=== PATIENT | female | born 1980 | race Caucasian/White ===

== ENCOUNTER 2018-11-19 23:14 | Emergency (ER) | payer MEDICAID, SELFPAY ==
[2018-11-19 23:15] VITALS: BP 136/81; PULSE 96; RESP 16; TEMP 36.8; O2SAT 98; BMI 27.3
--- NOTE | 2018-11-20 00:06 | ED.DCSUM_ITS ---
History of Present Illness Chief Complaint: Abd Pain Detail of Chief Complaint: Abnormal vaginal discharge status post 3 weeks ago Informant: Patient Onset: Today Context: Sudden Onset Timing: Continuous, Waxes and wanes Quality: Pain Location: Predominantly central abdomen Current Severity: Mild Maximum Severity: Moderate Worsened by: Nothing in particular Relieved by: Nothing Associated Symptoms: Vaginal discharge that appears abnormal and has an odor Narrative: Patient is a 38-year-old hearing impaired white female who presents with predominantly central upper and lower abdominal pain associated with abnormal vaginal discharge that has an odor. She is administering Lovenox since she had a stroke several years ago. She denies dysuria, frequency, urgency or hematuria. She denies back pain. She denies rash. There is no history of trauma. Prior similar symptoms: No Recent Illness/Hospitalization: Yes - 3 weeks ago - Past Medical History (1) History of CVA (cerebrovascular accident) Status: Acute (2) Hearing impaired person Status: Acute Past Medical History - Allergies and Home Meds Allergies/Adverse Reactions: Allergies No Known Allergies Allergy (Verified 11/19/18 23:18) Primary Care Physician: Care Physician,No Primary [Primary Care Provider] - Prior records reviewed: No - There are no old records for review Surgical History: - - Repeat 3 weeks ago Lives: With Family Smoking Status: Current every day smoker Alcohol: Rare Drugs: None Review of Systems General: Reports: Malaise. Denies: Chills, Fever, Sweats Eyes: Denies: Visual changes - bilaterally, Blurred Vision - bilaterally, Diplopia ENT: Denies: Bilateral ear pain, Rhinorrhea, Sore throat Cardiovascular: Denies: Chest pain, Palpitations, Heart racing Respiratory: Denies: Dyspnea, Cough, Sputum, Dyspnea on exertion, Orthopnea, Paroxysmal nocturnal dyspnea, -, - Gastrointestinal: Reports: Abdominal pain, Nausea. Denies: Vomiting, Diarrhea, Constipation, Melena, Hematochezia Genitourinary: Denies: Dysuria, Hematuria, Frequency Musculoskeletal: Denies: Myalgias, Arthralgias, Neck pain, Back pain, Swelling, Extremity Pain, -, - Skin: Denies: Rash, Abscess, Abrasions, Wounds, -, - Neurological: Denies: Headache, Weakness, Numbness Endocrine: Denies: Polyuria, Polydipsia Hematologic: Reports: Easy bruising Allergy: Denies: Uticaria, Swelling of the mouth Physical Exam Vital Signs/Narrative: Vital Signs Temp Pulse Resp BP Pulse Ox 11/19/18 23:15 98.2 F 96 16 136/81 H 98 Inital Vital Signs reviewed: Yes General: Well nourished, Well developed, No Acute Distress Head: Normocephalic, Atraumatic Eyes: Perrl, EOMI. Negative for: Pale conjunctiva, Scleral icterus ENT: Moist mucous membranes, No rhinorrhea Neck: Supple, Nontender, No lymphadenopathy, No JVD Cardiovascular: Regular rate, Regular rhythm, No murmurs, Normal S1, Normal S2 Respiratory: No distress, CTA bilaterally, Chest nontender Abdomen: Soft, Nondistended, No masses, Tender. Negative for: Guarding, Rebound tenderness Back: Nontender, Normal Inspection. Negative for: CVA tenderness Extremities: Nontender, No edema Skin: Normal color, No rash. Negative for: Cyanosis, Diaphoresis, Jaundice Neurological: Alert, Oriented x3, Cranial nerves II-XII grossly intact, Normal Strength, Normal Sensation Psychological: Normal affect, Normal Mood Diagnostic/Tx/Re-eval Laboratory Results 11/19/18 23:50 WBC 11.8 H RBC 4.44 Hgb 14.7 Hct 41.8 MCV 94.1 MCH 33.1 H MCHC 35.2 RDW 11.9 RDW Differential 40.4 Plt Count 361 MPV 8.5 Immature Gran % (Auto) 0.300 Neut % (Auto) 72.1 H Lymph % (Auto) 20.3 [place] % (Auto) 5.0 Eos % (Auto) 2.2 Baso % (Auto) 0.1 Absolute Neuts (auto) 8.5 H Absolute Lymphs (auto) 2.39 Total Counted Not Reportable - Medical Decision Making With history of recent and abdominal pain with abnormal vaginal discharge and odor patient will need pelvic exam. She may be bleeding secondary to Lovenox. There may be evidence of endometritis. IV was established. She was medicated with pain medicine. She was made n.p.o. and appropriate blood work was obtained to assess severity of illness and specifically H&H and white count. External genitalia normal. Vaginal mucosa is normal. There is whitish brown drainage noted from office. Patient has significant discomfort with palpation of the uterus. There is no adnexal mass appreciated. There is no adnexal fullness. Patient is not breast-feeding. She received her first dose of doxycycline in the emergency department and a prescription for doxycycline. She was instructed to keep her appointment with screen door maker scheduled for November 22. ED Disposition - Plan for ED Patient: Disposition: Home or Assisted Living Diagnosis: Endometritis following delivery Prescriptions: Hydrocodone Bitart/Apap 5-325 [[place] 5MG-325MG] 1 tab PO Q6H PRN PRN 3 Days #10 tab PRN Reason: Pain Doxycycline 100 mg PO BID #20 cap Referrals: Care Physician,No Primary [Primary Care Provider] - Additional Instructions: Keep scheduled appointment with laborer cheesemaking scheduled for November 22. Take medication as instructed until gone.
[2018-11-20] MEDS: Ketorolac 15 MG/ML Vial IV (00:14)
[2018-11-20 00:16] LABS: Absolute Lymphocyte Count 2.39 X10^3/ul (0.83-4.51); Absolute Neutrophil Count 8.5 X10^3/uL (2.0-7.7); Basophil# 0.01 X10^3/uL; Basophil% 0.1 % (0-1); Eosinophil# 0.26 X10^3/uL; Eosinophils% 2.2 % (0-5); Hematocrit 41.8 % (37-47); Hemoglobin 14.7 g/dl (12.0-15.0); Lymphocyte # 2.39 X10^3/ul (4.0); Lymphocyte % 20.3 % (19-41); Mean Corp Hgb Conc 35.2 g/gl (32-36); Mean Corpuscular Hgb 33.1 pg (27.0-32.0); Mean Corpuscular Volume 94.1 fL (81-99); Mean Platelet Vol. 8.5 fl (6.2-12.0); Monocyte# 0.59 X10^3/uL; Neutrophil # 8.49 X10^3/uL (2.7-7.7); Neutrophil % 72.1 % (47-70); Platelet Count 361 K/mm3 (150-450); RBC Distribution Width CV 11.9 % (11.6-14.6); RBC Distribution Width SD 40.4 fl (35.1-43.9); Red Blood Count 4.44 M/mm3 (4.2-5.4); White Blood Count 11.8 K/mm3 (4.4-11.0)
[2018-11-20 00:26] LABS: POSITIVE COUNT NO; POSITIVE DIFFERENTIAL NO; POSITIVE MORPHOLOGY NO
--- NOTE | 2018-11-20 00:48 | ED.VISSUMM ---
- ER Visit Summary Date of Service: 11/20/18 Chief Complaint: [] History of Present Illness: The patient is a 38 F [] Physical Examination: [] Test Results: [] Emergency Department Course and Treatment: [] Treatment Plan: [] Disposition: [] Impression: [] This note was generated with [employer] dictation software. It may contain incorrect words, spelling, and punctuation that were not noted in review of the chart prior to signing ED Disposition - Plan for ED Patient: Disposition: Home or Assisted Living Diagnosis: Endometritis following delivery Instructions: ED Endometritis Obstetric Prescriptions: Hydrocodone Bitart/Apap 5-325 [[place] 5MG-325MG] 1 tab PO Q6H PRN PRN 3 Days #10 tab PRN Reason: Pain Doxycycline 100 mg PO BID #20 cap Referrals: Care Physician,No Primary [Primary Care Provider] - Additional Instructions: Keep scheduled appointment with distribution collection operator scheduled for , November 22. Take medication as instructed until gone.
[2018-11-20] MEDS: HYDROcodone Bitartrate/Apap 5/325 Tablet PO (01:04)
[2018-11-20] MEDS: Doxycycline 100 MG CAPSULE PO (01:04)
[2018-11-20 01:07] VITALS: BP 131/74; PULSE 85; RESP 16; O2SAT 95
== END 2018-11-20 01:11 | disposition home or self-care (01) ==
PROVIDERS: Emergency Provider Emergency Medicine
DX: O86.12 Endometritis following delivery (principal); Z3A.00 Weeks of gestation of pregnancy not specified; F17.200 Nicotine dependence, unspecified, uncomplicated; Z86.73 Personal history of transient ischemic attack (TIA), and cerebral infarction without residual deficits
CPT/HCPCS: 85025; 96374; 99285; A4216

== ENCOUNTER 2019-05-13 11:27 | Emergency (ER) | payer MEDICAID, SELFPAY ==
[2019-05-13 11:28] VITALS: BP 147/89; PULSE 66; RESP 16; TEMP 36.6; O2SAT 98; BMI 25.4
--- NOTE | 2019-05-13 12:01 | EKG12_ITS ---
Test Reason : CP Blood Pressure : / mmHG Vent. Rate : 059 BPM Atrial Rate : 059 BPM P-R Int : 158 ms QRS Dur : 092 ms QT Int : 450 ms P-R-T Axes : 068 086 061 degrees QTc Int : 445 ms Sinus bradycardia with marked sinus arrhythmia Possible Anterior infarct , age undetermined Abnormal ECG Confirmed by BETSY BURROUGHS, JAQUI ([id number]), assignment editor UNRULY FOWLER ([id number]) on 05/15/2019 1:50:31 PM Referred By: ASHLYN/USHA Confirmed By:JAQUI MEYER MD
--- NOTE | 2019-05-13 12:01 | RAD_ITS ---
STUDY: X-RAY CHEST REASON FOR EXAM: Female, 39 years old. Chest pain. TECHNIQUE: 2 view chest. COMPARISON: None. FINDINGS: No apparent pneumothorax, pneumonia, pleural effusion, or edema. Cardiac silhouette, terrence and mediastinal contours are within normal limits. No acute osseous abnormality. No evidence of free air under the diaphragm. RAD/Chest PA and Lateral IMPRESSION: Negative chest radiograph. Electronically Signed: Gary Millan, at 12:42 EDT Tel , Service support ,
--- NOTE | 2019-05-13 12:02 | ED.DCSUM_ITS ---
History of Present Illness Chief Complaint: Chest Pain Informant: Patient Onset: Today Context: Sudden Onset Timing: Continuous Current Severity: Mild Maximum Severity: Severe Narrative: It is a 39-year-old female with history of anxiety hearing impairment and strokes presenting with chest pain. Patient states she woke up from sleep around 2 AM with chest tightness and shortness of breath. She states it felt like a severe anxiety attack which she does have a history of. Around 6:30 AM she took a Vistaril and is starting to feel slightly improved. She is concerned it could be something wrong with her heart so she came to the emergency room. She notes her symptoms are still present but much more mild. She also has a burning sensation in her epigastric region. Patient denies any vomiting or diarrhea. She denies any diaphoresis. She does smoke on a daily. She denies any alcohol or other drug use. Patient also comments that she has had a bulging sensation in her left lower abdomen since her 6-1/2 months ago. This is Shorty been evaluated by her PLASTIC CABLEMAKING MACHINE OPERATOR but she does not know the cause of it. That is currently not bothering her right now. Past Medical History - Allergies and Home Meds Allergies/Adverse Reactions: Allergies No Known Allergies Allergy (Verified 05/13/19 11:33) Primary Care Physician: Care Physician,No Primary [Primary Care Provider] - Surgical History: - - Repeat 3 weeks ago Smoking Status: Current every day smoker Review of Systems All systems negative except as indicated Cardiovascular: Reports: Chest pain Psych: Reports: Anxiety Physical Exam Vital Signs/Narrative: Vital Signs Temp Pulse Resp BP Pulse Ox 05/13/19 11:28 97.9 F 66 16 147/89 H 98 Inital Vital Signs reviewed: Yes General: Well nourished, Well developed, No Acute Distress Head: Normocephalic, Atraumatic Eyes: Perrl, EOMI ENT: Moist mucous membranes, No rhinorrhea Neck: Supple, Nontender Cardiovascular: Regular rate, Regular rhythm, No murmurs Respiratory: No distress, CTA bilaterally, Chest nontender Abdomen: Soft, Nontender, Nondistended, Normal bowel sounds Back: Nontender, Normal Inspection Extremities: Nontender, No edema Skin: Normal color, No rash Neurological: Alert, Oriented x3, Cranial nerves II-XII grossly intact, Normal Strength, Normal Sensation, - - With slurred speech, patient states this is chronic for her as she is hard of hearing Psychological: Normal affect, Normal Mood Diagnostic/Tx/Re-eval Chest X-Ray - ED: 2 View, Read by Radiologist, No Acute Disease Clinical Impression(s) from Imaging Studies Chest X-Ray 05/13/19 12:01 IMPRESSION: Negative chest radiograph. Electronically Signed: Gary Millan, at 12:42 EDT Tel , Service support , Laboratory Data 05/13/19 05/13/19 05/13/19 11:40 11:40 12:50 WBC 11.5 H RBC 4.73 Hgb 15.2 H Hct 44.9 MCV 94.9 MCH 32.1 H MCHC 33.9 RDW Std Deviation 44.6 H RDW Coeff of Pratima 12.7 Plt Count 348 MPV 8.7 Immature Gran % (Auto) 0.300 Neut % (Auto) 67.6 Lymph % (Auto) 24.2 Barth[place]omew % (Auto) 5.7 Eos % (Auto) 2.0 Baso % (Auto) 0.2 Absolute Neuts (auto) 7.8 H Absolute Lymphs (auto) 2.78 Nucleated RBC % 0 Sodium 140 Potassium 4.4 Chloride 109 H Carbon Dioxide 26.0 Anion Gap 5 BUN 16 Creatinine 0.75 Estim Creat Clear Calc 73.77 Est GFR (MDRD) Af Amer 111 Est GFR (MDRD) Non-Af 92 BUN/Creatinine Ratio 21.2 H Glucose 95 Calcium 8.9 Total Bilirubin 0.40 AST 11 L ALT 22 Alkaline Phosphatase 122 H Troponin I < 0.015 Total Protein 7.7 Albumin 3.9 Globulin 3.8 Albumin/Globulin Ratio 1.0 Lipase 91 Urine Color Yellow Urine Clarity Sl. Cloudy Urine pH 6.5 Ur Specific [place] 1.010 Urine Protein Negative Urine Glucose (UA) Normal Urine Ketones Negative Urine Occult Blood Negative Urine Nitrite Negative Urine Bilirubin Negative Urine Urobilinogen Normal Ur Leukocyte Esterase Negative Urine RBC 0 SEEN Urine WBC 0 SEEN Ur Squamous Epith Cells 0-5 SEEN Urine Bacteria RARE Urine Mucus 0 SEEN - Rhythm Strip Rhythm Strip: Sinus Rhythm Rate: 59 Ectopy: None - EKG Initial EKG Interpretation: Sinus Arrythmia, - - Bradycardia at a rate of 59 with sinus arrhythmia WA interval 158 QRS 92 QT/QTc 450/[address] segments No change compaired to prior EKG on - Medical Decision Making Is evaluated for chest pain that woke her from sleep. She states it was associated with an anxiety attack. She took Vistaril and this seemed to improve her symptoms. She appears nontoxic in no acute distress. She has normal vital signs with EKG that only shows a sinus arrhythmia. No acute ST segment changes. Patient is PE RC negative. Do not suspect ACS for the patient. She is low risk. Troponin, CBC and BMP are unremarkable. Chest x-ray does not show any acute process. Patient be discharged home to follow-up with her PCP. I suspect this related to her anxiety. Patient is counseled on signs and symptoms requiring return to the emergency room. Patient verbalizes agreement and understand this plan. Patient discharged home in stable and improved condition. ED Disposition - Plan for ED Patient: Disposition: Home or Assisted Living Diagnosis: Chest pain Instructions: CHEST PAIN, Uncertain Cause Referrals: Care Physician,No Primary [Primary Care Provider] - Additional Instructions: Return to emergency room if you develop worsening symptoms. Please follow-up with your primary care doctor for further evaluation of the symptoms. Please quit smoking.
[2019-05-13 12:27] LABS: AST(SGOT) 11 U/L (15-37); Alanine Aminotransfer ALT/SGPT 22 U/L (13-56); Albumin, Serum 3.9 g/dL (3.2-5.0); Alkaline Phosphatase 122 U/L (45-117); Anion Gap 5 (5-15); BUN 16 mg/dL (7-18); BUN/Creat Ratio 21.2 RATIO (10-20); Calcium,Total 8.9 mg/dL (8.5-10.1); Chloride 109 mmol/L (98-107); Creatinine, Serum 0.75 mg/dL (0.55-1.02); EST Glomerular Filtration Rate 92 mL/min (>60); Est Glom Filt Rate - Afr Amer 111 mL/min (>60); Estimated Creatinine Clearance 73.77 ml/min; Globulin 3.8 g/dL (2.2-4.2); Glucose 95 mg/dL (74-106); Lipase 91 U/L (73-393); Potassium 4.4 mmol/L (3.5-5.1); Protein, Total 7.7 g/dL (6.4-8.2); Sodium Level 140 mmol/L (136-145)
[2019-05-13 12:35] LABS: Absolute Lymphocyte Count 2.78 X10^3/uL (0.83-4.51); Absolute Neutrophil Count 7.8 X10^3/uL (2.0-7.7); Basophil# 0.02 X10^3/uL; Basophil% 0.2 % (0-1); Eosinophil# 0.23 X10^3/uL; Hematocrit 44.9 % (37-47); Hemoglobin 15.2 g/dL (12.0-15.0); Lymphocyte # 2.78 X10^3/ul (4.0); Lymphocyte % 24.2 % (19-41); Mean Corp Hgb Conc 33.9 g/dL (32-36); Mean Corpuscular Hgb 32.1 pg (27.0-32.0); Mean Corpuscular Volume 94.9 fL (81-99); Mean Platelet Vol. 8.7 fl (6.2-12.0); Monocyte# 0.65 X10^3/uL; Monocyte% 5.7 % (0-10); NRBC Flagged by Analyzer 0 % (0-5); Neutrophil # 7.78 X10^3/uL (2.7-7.7); Neutrophil % 67.6 % (47-70); Platelet Count 348 K/mm3 (150-450); RBC Distribution Width CV 12.7 % (11.6-14.6); RBC Distribution Width SD 44.6 fl (35.1-43.9); Red Blood Count 4.73 M/mm3 (4.2-5.4); White Blood Count 11.5 K/mm3 (4.4-11.0)
[2019-05-13 12:38] VITALS: BP 115/77; PULSE 53; RESP 12; O2SAT 98
[2019-05-13 12:55] LABS: Mucous, Urine 0 SEEN /hpf (<or=2+); Red Blood Cells-Urine 0 SEEN /hpf (0-5); White Blood Cells 0 SEEN /hpf (0-5)
[2019-05-13 12:59] LABS: Color, Urine Yellow (Yellow); Glucose, Dipstick Normal (Normal); Ketone-Dipstick Negative (Negative); Leukocyte Esterase-Dipstick Negative /ul (Negative); Nitrite-Dipstick Negative (Negative); Occult Blood-Urine Negative /ul (Negative); Protein-Dipstick Negative (Negative); Urine Bilirubin Dipstick Negative (Negative); Urine Clarity Sl. Cloudy (Clear); Urine Urobilinogen Normal (Normal); Urine pH 6.5 (5.0 - 8.0)
[2019-05-13 13:07] LABS: Bacteria RARE /hpf (None Seen); Squamous Epithelial Cells - UA 0-5 SEEN /hpf (5-10)
[2019-05-13 13:30] VITALS: BP 111/98; PULSE 69; RESP 13; O2SAT 98
--- NOTE | 2019-05-13 14:12 | ED.RN ---
DISCHARGE INSTRUCTIONS GIVEN TO AND REVIEWED WITH PATIENT, PATIENT DENIES QUESTIONS OR CONCERNS AND VOICES UNDERSTANDING OF DISCHARGE INSTRUCTIONS. PT AMBULATES OUT OF ROOM WITHOUT DIFFICULTY.
== END 2019-05-13 14:12 | disposition home or self-care (01) ==
PROVIDERS: Emergency Provider Emergency Medicine
DX: R07.9 Chest pain, unspecified (principal); R00.1 Bradycardia, unspecified; H91.90 Unspecified hearing loss, unspecified ear; F17.200 Nicotine dependence, unspecified, uncomplicated; Z79.82 Long term (current) use of aspirin; Z86.73 Personal history of transient ischemic attack (TIA), and cerebral infarction without residual deficits
CPT/HCPCS: 71046; 80053; 81001; 83690; 84484; 85025; 93005; 99284

== ENCOUNTER → 2019-09-12 08:58 | Outpatient (CLI) | payer MEDICAID, SELFPAY ==
--- NOTE | 2019-09-12 09:03 | RAD_ITS ---
STUDY: X-RAY - ESOPHAGUS (BARIUM SWALLOW) WITH FLUOROSCOPY REASON FOR EXAM: Female, 39 years old. DYSPHAGIA, SOLIDS, TABLETS; -- H/O CVA X 3 TECHNIQUE: 19 view(s) of the esophagus were obtained following swallowing of barium. FLUOROSCOPY TIME (if supplied): (0:44) minutes/seconds COMPARISON: None. FINDINGS: There is no demonstrated esophageal foreign body. There is no demonstrated stricture or mucosal abnormality. Normal gastroesophageal junction, without a demonstrated hiatal hernia. The patient ingested a 12 mm tablet of barium. There was a delay in the passage of the tablet from the distal esophagus to the stomach. Normal visualized aortic arch and descending thoracic aorta. Normal visualized pulmonary parenchyma. Normal visualized osseous structures of the thorax. RAD/Esophagus Only IMPRESSION: Mild delay in the passage of the 12 mm tablet of barium into the stomach. Electronically Signed: Jonh Mendez, at 9:59 EST , Service support ,
== END ==
LOC: RAD 08:59
PROVIDERS: Referring Provider Otolaryngology Otolaryngology/Facial Plastic Surgery; Visit Provider Otolaryngology Otolaryngology/Facial Plastic Surgery
DX: R13.10 Dysphagia, unspecified (principal)
CPT/HCPCS: 74220

== ENCOUNTER 2024-04-10 12:30 | Outpatient (RCR) | payer MEDICAID, SELFPAY ==
--- NOTE | 2024-02-21 10:46 | HP.PTEVAL ---
Patient's Visit Information Visit Information Visit Information: ALEAH CASTLE is a 44 year old F referred to Physical Therapy by TOO Black with a diagnosis of L shoulder weakness. Date of Evaluation: 02/19/24 Physical Therapist: Sloan Conner DPT Visit Plan Frequency: 2x /Week Duration: 4 Weeks Plan: Start with RTC strengthening and deltoid strengthening exercises. Progress dynamic exercises as able. Subjective Subjective: Pt. is here today for her initial evaluation with diagnosis of L shoulder weakness, CVA with L upper body. 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 Pt. has some N/T in her fingers on L hand. Pt. reports when she sits of straight her pain is the best. Painful at night and does wake her up at times, especially if she rolls over on it. Pt. has not had any imaging at this point in time. She had a CVA effecting her LUE years ago. She attempted to take a shower before going to the hospital and felt her L arm go backwards, and has been painful since. Pt. is hopeful to reduce symptoms and get back to all recreational activities without limitaitons. Pain L shoulder: Pain Intensity (Out of 10): 7 Pain Intensity Range: 3 and 10 Comment: worst in the middle of the night Objective Objective: POSTURE: Pt. has slight FH posture, equal shoulder heights. PALPATION: Pt. has slight tenderness throughout L UT and scapular region NEURO: Normal throughout. Pt. has slight increase in biceps DTR. Pt. reports some tingling in her L arm at times. ROM: AROM: L shoulder: flexion 175deg increase NW, abd 175deg increase NW, functional ER C5 increase NW, functional IR T10 NE. Pt. has similar pain with end range passive flexion and abd. Not much pain with end range passive ER/IR at 90deg of abd, full motion noted. MMT: RUE: shoulder: flexion 17.1#, abd 13.3#, ER 8.9#, IR 13.5#. LUE: shoulder: flexion 13.1#, abd 9.3#, ER 5.5#, IR 11.9#. Special Tests L Shoulder External Rotation Lag Test - RC Tear: Negative L Shoulder Drop Sign - IS Test: Negative L Shoulder Empty Can - SS: Negative L Shoulder Belly Press - SupScap: Negative L Shoulder Neer - Impingement: Positive L Shoulder Pires Toni - Impingement: Positive L Shoulder Biceps Load Test - Labrum: Negative Balance/Special Test Scores Quick DASH Score: [phone] Goals Goal 1:: LTG: Pt. to be I with HEP for L shoulder strengthening and stability. Goal Time Frame: 4-6 Weeks Goal 2:: STG: Pt. to sleep throughout the night without increase in symptoms. Goal Time Frame: 2 Weeks Goal 3:: LTG: Pt. to have symmetrical strength between B shoulders. Goal Time Frame: 4-6 Weeks Goal 4:: LTG: Pt. complete all activities, ADLs without increase in symptoms. Goal Time Frame: 4-6 Weeks Goal 5:: LTG: Pt. to have improved quick dash to less than 25 indicating notable improvement. Goal Time Frame: 4-6 Weeks Rehabilitation Potential Physical Therapy Diagnosis: Pt. has signs consistent with L shoulder weakness. Pt. has decent ROM with end range pain. Pt. did have marked L sided weakness compared to R, but did have a previous CVA effecting this side as well. I would recommend starting with RTC strengthening and shoulder stability exercises progressing back to all activities as tolerated. Rehabilitation Potential: Good Anticipated Interventions Patient/Client Instruction: Educate patient on: Condition, Plan of Care, Risk Factors and Benefits of Fitness Program For the Purpose of:: To improve health and function, To foster healthy habits, To improve decision making, To facilitate caregiver knowledge, To improve self management, To prevent re-injury and To improve ability to perform tasks related to life management Therapeutic Exercise to Include: Strength training, Power training, Body mechanics, Postural training, Flexibilty training, Passive ROM, Active ROM and Scapular Strength/Stabilization For the Purpose of:: To decrease pain, To increase ROM, To improve nutrient delivery to tissue, To increase oxygenation perfusion, To improve muscle performance and motor function, To improve health of tissue, To decrease soft tissue restriction and To increase flexibility/ROM Text: Thank you for the opportunity to evaluate your patient. For Medicare and Medicare HMO plans, please review the plan of care and approve it. It will need to be FAXED BACK to us at [phone] for Medicare purposes. For Medicare only, by signing this I certify the plan of care. Please let me know if there are questions or concerns regarding this plan of care. Physician Signature: Date:
== END 2024-04-10 19:00 | disposition home or self-care (01) ==
LOC: PT 12:30
PROVIDERS: PCP Registered Nurse; Referring Provider Registered Nurse; Visit Provider Registered Nurse
DX: I69.354 Hemiplegia and hemiparesis following cerebral infarction affecting left non-dominant side; R53.1 Weakness
CPT/HCPCS: 97110; 97140; 97161